=== PATIENT | male | born 1970 | race Caucasian/White ===

== ENCOUNTER 2024-09-13 14:24 | Emergency (ER) | payer OTHER ==
[~2024-09-13] VITALS: Ht 180.3 cm; Wt 130.2 kg
[2024-09-13] MEDS ORDERED: PROTONIX40 MG PO (15:23)
[2024-09-13] MEDS ORDERED: ZESTRIL5 MG PO (15:23)
[2024-09-13 16:04] LABS: INFLUENZA B NAA NEGATIVE (NEGATIVE); RESPIRATORY SYNCYTIAL VIR NAA POSITIVE (NEGATIVE)
[2024-09-13 18:12] VITALS: BP 157/97
== END 2024-09-13 18:12 | disposition home or self-care (01) ==
LOC: ED 14:24
PROVIDERS: Emergency Medicine
DX: J02.9 Acute pharyngitis, unspecified (principal); R05.9 Cough, unspecified; R09.89 Other specified symptoms and signs involving the circulatory and respiratory systems; B97.4 Respiratory syncytial virus as the cause of diseases classified elsewhere; I10 Essential (primary) hypertension; Z88.5 Allergy status to narcotic agent; Z79.899 Other long term (current) drug therapy; Z87.01 Personal history of pneumonia (recurrent)
CPT/HCPCS: 87502; 99283; U0002